=== PATIENT | female | born 1965 | race Caucasian/White ===

== ENCOUNTER 2017-08-03 22:41 | Emergency (ER) | payer BC ==
[~2017-08-03] VITALS: Ht 154.9 cm; Wt 60.0 kg
[2017-08-03 22:55] VITALS: BP 143/83; PULSE 95; RESP 16; TEMP 98; O2SAT 96
== END 2017-08-03 23:05 | disposition left against medical advice (07) ==
LOC: NED 23:00
DX: R13.10 Dysphagia, unspecified (principal); Z53.21 Procedure and treatment not carried out due to patient leaving prior to being seen by health care provider
CPT/HCPCS: 99281